=== PATIENT | male | born 1980 | race Caucasian/White ===

== ENCOUNTER 2022-03-01 09:07 | Emergency (ER) | payer BC, MEDICAID ==
[~2022-03-01] VITALS: Ht 193 cm; Wt 127.0 kg
[~2022-03-01 09:07] MED LIST: CEPH-357 PO; HYDR-3965 PO; PER5325T PO
[2022-03-01 09:26] VITALS: BP 151/97
[2022-03-01] MEDS ORDERED: SULF1TAB49 PO (10:01)
== END 2022-03-01 10:28 | disposition home or self-care (01) ==
LOC: ER 09:07
DX: L02.512 Cutaneous abscess of left hand (principal); Z79.1 Long term (current) use of non-steroidal anti-inflammatories (NSAID); Z79.899 Other long term (current) drug therapy
CPT/HCPCS: 99283